=== PATIENT | male | born 1970 | race Hispanic/Latino ===

== ENCOUNTER 2019-03-21 15:42 | Emergency (ER) | payer MEDICAID, SELFPAY ==
[~2019-03-21] VITALS: Ht 175.3 cm; Wt 84.1 kg
[2019-03-21] MEDS ORDERED: diphenhydrAMINE 25 MG CAP PO ONE (17:30)
[2019-03-21] MEDS ORDERED: ceFAZolin SOD 1 GM in D5W MINI-BAG PLUS 50 ML IV ONE (17:45)
[2019-03-21 18:00] LABS: BASO % 0.4 % (0.0-1.0); EOS # 0.4 10^3/uL (0.0-0.50); EOS % 5.2 % (0.0-3.0); HEMATOCRIT 48.1 % (42.0-52.0); HEMOGLOBIN 15.3 g/dl (13.5-17.5); LYMPH # 2.3 10^3/uL (1.5-4.5); LYMPH % 26.7 % (24.0-44.0); MEAN CORPUSCULAR HGB CONC 31.8 g/dl (32.0-36.5); MEAN CORPUSCULAR VOLUME 84.8 fl (80.0-96.0); MONO # 0.6 10^3/uL (0.0-0.8); MONO % 7.1 % (0.0-5.0); NEUTROPHILS # 5.1 10^3/uL (1.8-7.7); NEUTROPHILS % 60.2 % (36.0-66.0); PLATELET COUNT, AUTOMATED 150 10^3/uL (150-450); RED BLOOD COUNT 5.67 10^6/uL (4.30-6.10); WHITE BLOOD COUNT 8.4 10^3/uL (4.0-10.0)
[2019-03-21] MEDS ORDERED: diphenhydrAMINE INJ 50MG/ML VIAL (J1200) IV STA (18:06)
[2019-03-21 18:15] LABS: BLOOD UREA NITROGEN 16 MG/DL (7-18); CALCIUM LEVEL 9.6 MG/DL (8.5-10.1); CARBON DIOXIDE LEVEL 33 MEQ/L (21-32); CHLORIDE LEVEL 106 MEQ/L (98-107); CREATININE FOR GFR 1.25 MG/DL (0.70-1.30); GLOMERULAR FILTRATION RATE > 60.0 (>60); GLUCOSE, FASTING 94 MG/DL (70-100); POTASSIUM SERUM 4.2 MEQ/L (3.5-5.1); SODIUM LEVEL 143 MEQ/L (136-145)
[2019-03-21] MEDS ORDERED: methylPREDNISolone INJ 125 MG/2 ML VIAL (J2930) IV ONE (19:00)
[2019-03-21] MEDS ORDERED: KEFL500C17 PO (19:32)
[2019-03-21 20:01] VITALS: BP 160/76
== END 2019-03-21 22:45 | disposition home or self-care (01) ==
LOC: M ED 15:42
DX: L03.114 Cellulitis of left upper limb (principal); T63.461A Toxic effect of venom of wasps, accidental (unintentional), initial encounter; Y92.9 Unspecified place or not applicable; Y93.9 Activity, unspecified; Z72.0 Tobacco use; F12.10 Cannabis abuse, uncomplicated
CPT/HCPCS: 80048; 85025; 96374; 96375; 99284; J0690; J1200; J2930

== ENCOUNTER 2023-03-14 12:50 | Emergency (ER) | payer BC, SELFPAY ==
[~2023-03-14] VITALS: Ht 175.3 cm; Wt 7.6 kg
[~2023-03-14 12:50] MED LIST: KEFL500C17 PO
[2023-03-14 12:51] VITALS: TEMP 98.5
[2023-03-14] MEDS ORDERED: CYCLOBENZAPRINE 5MG TABLET PO ONE (16:05)
[2023-03-14] MEDS ORDERED: KETOROLAC 30 MG/ML 1ML VIAL IM ONE (16:05)
[2023-03-14 16:51] LABS: ALBUMIN 4.1 G/DL (3.2-5.2); BILIRUBIN,DIRECT 0.1 MG/DL (<0.4); BILIRUBIN,TOTAL 0.4 MG/DL (0.3-1.2); TOTAL PROTEIN 6.9 G/DL (5.7-8.2)
[2023-03-14 17:08] VITALS: O2SAT 100
[2023-03-14 17:20] VITALS: BP 220/114
[2023-03-14] MEDS ORDERED: CARVedilol 12.5 MG TAB PO ONE (17:20)
[2023-03-14 18:07] VITALS: BP 220/148
[2023-03-14] MEDS ORDERED: IBUP-1022 PO (18:32)
[2023-03-14] MEDS ORDERED: CHLO125TA PO (18:32)
[2023-03-14] MEDS ORDERED: METH-1164 PO (18:32)
== END 2023-03-14 18:43 | disposition left against medical advice (07) ==
LOC: M ED 12:50
DX: M54.50 Low back pain, unspecified (principal); I10 Essential (primary) hypertension; F17.200 Nicotine dependence, unspecified, uncomplicated; Z79.1 Long term (current) use of non-steroidal anti-inflammatories (NSAID); Z79.899 Other long term (current) drug therapy; Z53.9 Procedure and treatment not carried out, unspecified reason
CPT/HCPCS: 72110; 80047; 80076; 81001; 93005; 96372; 99284; J1885

== ENCOUNTER 2024-05-07 12:39 | Emergency (ER) | payer BC ==
[~2024-05-07] VITALS: Ht 177.8 cm; Wt 87.4 kg
[~2024-05-07 12:39] MED LIST changes: +CHLO125TA PO; +IBUP-1022 PO; +METH-1164 PO
[2024-05-07 12:42] VITALS: BP 127/89; TEMP 97.8; O2SAT 99
[2024-05-07 13:32] LABS: BASO % 0.3 % (0.0-1.0); EOS # 0.1 10^3/uL (0.0-0.5); EOS % 0.5 % (0.0-3.0); HEMATOCRIT 51.5 % (42.0-52.0); HEMOGLOBIN 17.2 g/dl (13.5-17.5); LYMPH # 2.3 10^3/uL (1.5-5.0); LYMPH % 19.8 % (24.0-44.0); MEAN CORPUSCULAR HGB CONC 33.4 g/dl (32.0-36.5); MEAN CORPUSCULAR VOLUME 80.7 fl (80.0-96.0); MONO # 0.6 10^3/uL (0.0-0.8); MONO % 5.4 % (2.0-8.0); NEUTROPHILS # 8.5 10^3/uL (1.5-8.5); NEUTROPHILS % 73.7 % (36.0-66.0); PLATELET COUNT, AUTOMATED 186 10^3/uL (150-450); RED BLOOD COUNT 6.38 10^6/uL (4.30-6.10); WHITE BLOOD COUNT 11.6 10^3/uL (4.0-10.0)
[2024-05-07 13:47] LABS: INR 1.05; PROTHROMBIN TIME 13.4 SECONDS (12.5-14.5)
[2024-05-07 14:06] LABS: BILIRUBIN,DIRECT 0.1 MG/DL (<0.4); BILIRUBIN,TOTAL 0.4 MG/DL (0.3-1.2); CALCIUM LEVEL 10.8 MG/DL (8.5-10.1); CREATININE FOR GFR 1.65 MG/DL (0.70-1.30); GLOMERULAR FILTRATION RATE 46.9 (>56); POTASSIUM SERUM 4.2 MMOL/L (3.5-5.1); TOTAL PROTEIN 7.2 G/DL (5.7-8.2)
[2024-05-07 14:08] LABS: FREE T4 1.52 NG/DL (0.89-1.76); THYROID STIMULATING HORMONE 0.607 uIU/ML (0.55-4.78)
[2024-05-07 14:09] LABS: MB/CK RELATIVE INDEX 0.65 (< OR =4)
== END 2024-05-07 16:37 | disposition left against medical advice (07) ==
LOC: M ED 12:39
DX: Z53.21 Procedure and treatment not carried out due to patient leaving prior to being seen by health care provider (principal)

== ENCOUNTER → 2024-08-07 | Outpatient (CLI) | payer BC | LOC: M RAD 07:37 | PROVIDERS: ATTEND Physician Assistant | DX: F17.210 Nicotine dependence, cigarettes, uncomplicated (principal) ==

== ENCOUNTER 2025-07-04 09:15 | Emergency (ER) | payer BC ==
[~2025-07-04] VITALS: Ht 175.3 cm; Wt 82.7 kg
[~2025-07-04 09:15] MED LIST changes: -IBUP-1022 PO; +IBUP600T42 PO
[2025-07-04] MEDS ORDERED: LISI10TA22 (09:28)
[2025-07-04] MEDS ORDERED: AMLO1TAB24 (09:28)
[2025-07-04] MEDS ORDERED: TRAZ1TAB11 (09:28)
[2025-07-04] MEDS ORDERED: SERT50TA29 (09:28)
[2025-07-04] MEDS ORDERED: CYCL-707 PO (11:07)
[2025-07-04] MEDS ORDERED: IBUP600T42 PO (11:07)
[2025-07-04 11:13] VITALS: BP 146/92; TEMP 97.1; O2SAT 99
== END 2025-07-04 11:14 | disposition home or self-care (01) ==
LOC: M ED 09:15
DX: M54.12 Radiculopathy, cervical region (principal); I10 Essential (primary) hypertension; F17.200 Nicotine dependence, unspecified, uncomplicated; Z79.899 Other long term (current) drug therapy